=== PATIENT | female | born 1975 | race Caucasian/White ===

== ENCOUNTER 2017-01-16 08:18 | Day surgery (SDC) | payer OTHER ==
[~2017-01-16 08:18] MED LIST: HYDROCODON-ACE1 EA16 PO; MACROBID 100 M100 MG PO; PROVENTIL17 GM IH; ULTRAM50 M1 PO
== END 2017-01-16 15:24 ==
LOC: SHSC 08:18 → ORE 11:15 → PACU 12:36 → SHSC 14:05
PROC: 0TF3XZZ Fragmentation in Right Kidney Pelvis, External Approach (ICD-10-PCS; principal; 2017-01-16)
PROC: 0T768DZ Dilation of Right Ureter with Intraluminal Device, Via Natural or Artificial Opening Endoscopic (ICD-10-PCS; 2017-01-16)
DX: N20.2 Calculus of kidney with calculus of ureter (principal); E66.01 Morbid (severe) obesity due to excess calories; J45.909 Unspecified asthma, uncomplicated; F17.210 Nicotine dependence, cigarettes, uncomplicated; Z79.899 Other long term (current) drug therapy; Z88.1 Allergy status to other antibiotic agents; Z88.2 Allergy status to sulfonamides; Z87.442 Personal history of urinary calculi; Z90.89 Acquired absence of other organs; Z98.890 Other specified postprocedural states
CPT/HCPCS: C1769; C2617; J1956; J2270; J2405; J3010